=== PATIENT | male | born 2005 | race Caucasian/White ===

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

== ENCOUNTER 2025-03-07 13:09 | Outpatient (AMB) | payer OTHER, SELFPAY ==
--- NOTE | 2025-03-07 13:49 | AM.OFFWIN_ITS ---
Intake Vital Signs 3 03/07/25 13:50 Height 6 ft Weight 124 lb BMI 16.8 BP 104/62 Blood Pressure Location Lt brachial Position Sitting Pulse 71 Pulse Source Pulse Oximeter Pulse Oximetry (%) 98 Oxygen Delivery Method Room Air Intake Visit Reasons: EP Rash under LT armpit Intake Note: Patient here for rash under left armpit that he noticed 2 days ago. Patient Tobacco Use Status: Never used Tobacco Allergies No Known Allergies [No Known Allergies*] Allergy (Verified 03/07/25 13:51) Do you need a note to return to daycare/school/sports/work: No HPI HPI Comments 2 History of Present Illness0 Details 19 y/o Male patient who presents to the walk in clinic with 2-3 day h/o Itchy red rash under left Armpit. 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 [facility] Medical History (Updated 03/07/25 @ 14:27 by Dayanara Jonas NP) Rash and nonspecific skin eruption Autism Social History Patient Tobacco Use Status: Never used Tobacco Review of Systems Const All systems reviewed & are unremarkable except as noted in HPI and below Physical Exam Vital Signs: Last Vital Signs Pulse 71 03/07/25 13:50 BP 104/62 03/07/25 13:50 Pulse Ox 98 03/07/25 13:50 Oxygen Delivery Method Room Air 03/07/25 13:50 BMI result Body Mass Index 16.8 Const General: no acute distress Nutritional Appearance: underweight Orientation/consciousness: patient oriented x3 Limitations: behavioral limitations Chest Chest/axillae images: 2 1. bright red scaly rash Skin Rashes: rashes noted (Left Armpit bright red scaly rash) Neuro General: patient oriented x3, gait normal and moves all extremities Psych Speech and movement: Normal speech and movement present Assessment & Plan Assessment & Plan (1) Rash and nonspecific skin eruption: Code(s): R21 - Rash and other nonspecific skin eruption Plan: DDx's: Tinea vs Eczema vs Dermatitis. Ordered Clotrima/Betameth Cream. Advised Keep the skin clean and Dry. Advised to Bath immediately after each Game. Medications: New 2 clotrimazole-betamethasone 1-0.05 % 1 appl topical BID 45 grams 1RF 2 weeks R21 - Rash and other nonspecific skin eruption Coding Level of Care Code Est Pt Level 4 (88503) Diagnoses Rash and nonspecific skin eruption R21 Time Spent (min) 20
[2025-03-07 13:50] VITALS: BP 104/62; PULSE 71; O2SAT 98; BMI 16.8
== END 2025-03-07 14:32 | disposition home or self-care (01) ==
PROVIDERS: PCP Pediatrics; Visit Provider Nurse Practitioner Family
DX: R21 Rash and other nonspecific skin eruption (principal)

== ENCOUNTER → 2025-03-07 13:09 | Outpatient (BNVA) | payer OTHER, SELFPAY | PROVIDERS: PCP Pediatrics; Visit Provider Nurse Practitioner Family | DX: R21 Rash and other nonspecific skin eruption (principal) | CPT/HCPCS: 99212 ==

== ENCOUNTER 2025-06-03 18:48 | Emergency (ER) | payer OTHER, SELFPAY ==
[2025-06-03 18:53] VITALS: BP 128/71; PULSE 63; RESP 16; TEMP 36.5; O2SAT 99; BMI 17.4
--- NOTE | 2025-06-03 19:09 | ED.GENADULT ---
HPI - General Adult General Chief complaint: Ear Problems Stated complaint: right ear blockage Time Seen by Provider: 06/03/25 18:57 Source: patient and RN notes reviewed Mode of arrival: ambulatory Limitations: no limitations History of Present Illness ED Provider: Brandy HPI narrative: 19-year-old male presents for evaluation of right ear blockage. He reports over last few days he has been unable to hear from it well. He has no pain He tried to flush the ear himself with a syringe and was unsuccessful. No other complaints or concerns Related Data Previous Rx's ?Medication ?Instructions ?Recorded clotrimazole-betamethasone 1 1 appl topical BID 2 weeks #45 03/07/25 %-0.05 % topical cream grams Allergies Allergy/AdvReac Type Severity Reaction Status Date / Time No Known Allergies (No Known Allergy Verified 06/03/25 18:56 Allergies*) Review of Systems Constitutional: Constitutional: Denies body ache(s), Denies chills, Denies fever(s) and Denies headache(s) ENT: Reports otalgia and Denies headache(s) Cardiovascular: Cardiovascular: Denies chest pain and Denies dyspnea on exertion Respiratory: Respiratory: Denies cough and Denies dyspnea on exertion Gastrointestinal: Gastrointestinal: Denies abdominal pain Integumentary/Breasts: Skin/Breast: Denies rash Neurologic: Denies headache(s) PMFSH Past Medical History Medical History (Updated 06/03/25 @ 19:13 by Eber Nava) Rash and nonspecific skin eruption Autism Social History Social History Patient Tobacco Use Status: Never used Tobacco Do you have a plan to hurt others: No Plan Physical Exam ED Vital Signs: Vital Signs - 24 hr 06/03/25 18:53 Temperature 97.7 F Pulse Rate 63 Respiratory Rate 16 Blood Pressure 128/71 Pulse Oximetry 99 Oxygen Delivery Method Room Air BMI result Body Mass Index 17.4 Const General: healthy appearing, comfortable, no acute distress, alert and awake Nutritional Appearance: well nourished Orientation/consciousness: patient oriented x3 HENMT Head: Yes normocephalic and Yes atraumatic Ears: right TM abnormal (Initially not visualized on right due to cerumen impaction) and TM normal on the left Eyes Eyelids: Yes eyelids normal Conjunctivae: conjunctivae normal Sclerae: sclerae normal Corneas: corneas normal Pupils: Equal, round and reactive pupils present EOM: EOMs intact bilaterally Neck Neck: Yes full ROM Resp Effort & Inspection: normal respiratory effort, able to speak in complete sentences and not labored Skin General skin exam: elasticity normal Neuro General: patient oriented x3 Cranial nerves: Yes Equal, round and reactive pupils present and Yes Bilaterally intact EOM present Cognition (Neuro): normal cognition Extrem Other: Moving all extremities well without any obvious deformities Medical Decision Making Medical Decision Making MDM Narrative: 19-year-old male presents for evaluation of a blockage in the right ear. He had a cerumen impaction. I irrigated the ear with a solution of hydrogen peroxide and warm water. I flushed 150 cc of this solution and the patient's ER and was able to remove large amounts of cerumen. A curette was used to remove the remnants from the external ear canal. Postprocedure a TM was visualized intact, no erythema. Differential Diagnosis Differential Diagnoses: The differential diagnosis associated with the presentation includes Cerumen impaction Otitis media Otitis externa Mastoiditis less likely Discharge Plan Discharge Clinical Impression: Cerumen impaction Patient Disposition: Home, Self-Care Instructions: Carbamide Peroxide (Into the ear) Additional Instructions: You had a moderate amount of ear wax buildup in your right ear. This was drained. I recommend that you do not stick anything in your ear. There was no evidence of an ear infection. You may follow up with your primary doctor You may use [id number] Debrox drops in the future to break up ear wax Prescriptions: No Action clotrimazole-betamethasone 1-0.05 % cream 1 appl topical BID 14 Days Qty: 45 1RF Print Language: [place] Leonean
[2025-06-03 19:54] VITALS: BP 199/62; PULSE 67; RESP 17; TEMP 36.8; O2SAT 98
== END 2025-06-03 19:55 | disposition home or self-care (01) ==
PROVIDERS: Emergency Provider Internal Medicine
DX: H92.01 Otalgia, right ear (principal); H61.21 Impacted cerumen, right ear
CPT/HCPCS: 69209; 99283

== ENCOUNTER 2025-06-20 12:29 | Outpatient (AMB) | payer OTHER, SELFPAY ==
--- NOTE | 2025-06-20 12:34 | A.OFFPC_ITS ---
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: No Accompanied by: Mother Allergies No Known Allergies (No Known Allergies*) Allergy (Verified 06/20/25 12:48) Medication List - Last Reconciled 06/20/25 by Artie Guerrero FIRE PREVENTION FORESTER- clotrimazole-betamethasone 1-0.05 % 1 appl topical BID 2 weeks Tobacco use date assessed: 06/20/25 Dental Screening Dental Screen Date: 06/20/25 Did you have a dental visit in the last 12 months?: Yes Did you have a dental problem in the last 6 months where you did not have access to dental care?: No Was dental information given to patient?: Patient has dentist HPI 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 He has a history of Autism Spectrum Disorder and has previously been under the care of a book shelver. The patient enjoys playing video games and is currently attending a specialized school. He is considering obtaining his first job soon. He denies experiencing chest pain, dyspnea, hematochezia, constipation, or diarrhea. The patient is described as having a tall and slender build. During the examination, excessive cerumen was noted in the right ear canal, which was impacting the tympanic membrane. Plans were made to flush the cerumen today, and fasting labs were ordered. Health Maintenance Social History - Education: Attending a specialized [employer] - Employment: Considering obtaining firs t job soon - Recreational Activities: Enjoys playin g video games Review of Systems - Cardiovascular: Denies chest pain - Respiratory: Denies dyspnea - Gastrointestinal: Denies hematochezia, constipation, diarrhea -denies any si or hi -denies any fevers or chills Physical Exam General: Cooperative, healthy appearing, comfortable, no acute distress and well developed, skinny stature, tall Orientation: Patient oriented x3 Limitations: No limitations Head: Normal to inspection Ears: Excessive cerumen in the right ear canal, pushing on the TM, after ear lavage, cerumen still present Nose: Normal external nose present Face and sinus: Normal facial exam Eyes: Appearance normal, both eyes and all related structures Neck: Normal visual inspection and Yes full ROM Respiratory: Normal respiratory effort and able to speak in complete sentences. Clear to auscultation bilaterally Cardiovascular: Regular rate and rhythm. Normal S1 and S2 GI: Normal to inspection. Soft to palpation and nontender : Testicles without masses/lesions and no hernias appreciated Skin: No rashes or lesions noted Neuro: Patient oriented x3 Extremities: Normal to inspection Plan The plan includes flushing the excessive cerumen from the right ear canal to relieve the impact on the tympanic membrane. Additionally, fasting laboratory tests have been ordered to further assess the patient's health status. [facility] Medical History Rash and nonspecific skin eruption Autism Social History Housing: Apartment Patient Tobacco Use Status: Never used Tobacco e-Cigarette/Vaping Use: Never Used service: No Current occupational status: unemployed Current occupational exposures/hazards: No Cognitive needs: No Hearing needs: No Vision needs: No Questionnaire PHQ-9 Over the last 2 weeks, how often have you been bothered by any of the following problems? 1. Little interest or pleasure in doing things: several days 2. Feeling down, depressed, or hopeless: several days 3. Trouble falling or staying asleep, or sleeping too much: not at all 4. Feeling tired or having little energy: not at all 5. Poor appetite or overeating: not at all 6. Feeling bad about yourself - or that you are a failure or have let yourself o r your family down: several days 7. Trouble concentrating on things, such as reading the newspaper or watching television: several days 8. Moving or speaking so slowly that other people could have noticed. Or the opposite - being so fidgety or restless that you have been moving around a lot more than usual: several days 9. Thoughts that you would be better off or of hurting yourself in some way: not at all Total score: 5 Depression Screening Interpretation: Negative Depression Screening Done: Yes 75232 - PHQ-9 Billing: Yes Source: Developed by Drs. Librado Montelongo, Lisa B.Josr Jordan and colleagues, with an educational mark from [employer]. Thrive Questionnaire Date Thrive assessed: 09/05/21 I am a: Patient What is your living situation today?: I have a steady place to live Within the past 12 months, did the food you bought not last and you didn't have the money to get more?: I choose not to answer this question Within the past 12 months, did you worry whether your food would run out before you got money to buy more?: Never true Do you have trouble paying for medicines?: No Do you have trouble getting transportation to medical appointments?: No Do you have trouble paying your heating and electricity bill?: No Do you have trouble taking care of your child, family member or friend?: No Do you have trouble with day-to-day activities such as bathing, preparing meals, shopping, managing finances, etc.?: No Are you currently unemployed and looking for a job?: Yes Are you interested in more education?: Yes Please select the resources that you would like help with: None Currently or been in a relationship where the following occur: I choose not to answer THRIVE Score: 0 AUDIT C Alcohol Use Questionnaire (AUDIT-C) 1. How often do you have a drink containing alcohol?: Never Total Score: 0 NICOLASA-7 AMB Questionnaire NICOLASA-7 Date NICOLASA - 7 assessed: 06/20/25 Feeling nervous, anxious, or on edge: 1 = Several days Not being able to stop or control worryin = Several days Worrying too much about different things: 1 = Several days Trouble relaxin = Not at all Being so restless that it is hard to sit still: 1 = Several days Becoming easily annoyed or irritable: 0 = Not at all Feeling afraid as if something awful might happen: 1 = Several days Total NICOLASA-7 score (0-4 normal; 5-9 mild; 10-14 moderate; 15-21 severe): 5 Source: Developed by Drs. Librado Montelongo, Josr Estrada and colleagues, with an educational mark from [employer]. NICOLASA-7 Assessment Billing NICOLASA-7 Assessment Tool: NICOLASA-7 Assessment 29625 Physical exam (Primary Care) Vital Signs: Last Vital Signs Temp 98.3 F 06/20/25 12:37 Pulse 65 06/20/25 12:37 Resp 16 06/20/25 12:37 BP 120/82 06/20/25 12:37 Pulse Ox 99 06/20/25 12:37 Tobacco/Smoking Status: Tobacco use Status Tobacco use date assessed 06/20/25 06/20/25 12:42 Patient Tobacco Use Status Never used Tobacco 06/20/25 12:36 e-Cigarette/Vaping Use Never Used 06/20/25 12:42 PHQ-9: PHQ-9 Score PHQ-9: Total score 5 06/20/25 12:42 Depression Screening Interpretation: Negative Thrive Assessment: Date of Thrive Assessment Date Thrive assessed 09/05/21 06/20/25 12:36 Currently or been in a relationship where the following occur: I choose not to answer Office Procedures Cerumen Removal From which ear canal was the cerumen removed: right Removal: irrigation Notes: patient tolerated procedure well and no complications (cerumen remains to right ear canal, will have him use debrox) 58616-Vlf Irrigation/Lavage (encouraged to try debrox, using drops up to 3 days straight ) Coding Level of Care Code Est Pt Level 3 (09391) New Pt Prev Care 18-39yr(48145 Diagnoses Encounter for routine adult physical exam with abnormal findings Z00. Autism F84.0 Impacted cerumen of right ear H61.21 CPT Codes Office Procedure - CPT: 94561-Jfc Irrigation/Lavage ([id number]) Additional Codes NICOLASA-7 Assessment Billing - NICOLASA-7 Assessment Tool: NICOLASA-7 Assessment 75228 ([id number]) PHQ-9 - 45068 - PHQ-9 Billing: Yes ([id number]) Assessment & Plan Assessment & Plan (1) Encounter for routine adult physical exam with abnormal findings: Code(s): Z00.01 - Encounter for general adult medical examination with abnormal findings Category: Medical (2) Autism: Code(s): F84.0 - Autistic disorder Category: Medical (3) Impacted cerumen of right ear: Code(s): H61.21 - Impacted cerumen, right ear Category: Medical Plan . Orders: Orders Complete Blood Count Auto Diff Today Z00.00 - Encounter for general adult medical examination without abnormal findings Comprehensive [place]. Panel Fast Today Z00.00 - Encounter for general adult medical examination without abnormal findings TSH reflex Free T4 Today Z00.00 - Encounter for general adult medical examination without abnormal findings Lipid Panel Today Z00.00 - Encounter for general adult medical examination without abnormal findings UA CC w/rflx Micro + Cult Today Z00.00 - Encounter for general adult medical examination without abnormal findings
[2025-06-20 12:37] VITALS: BP 120/82; PULSE 65; RESP 16; TEMP 36.8; O2SAT 99
== END 2025-06-20 13:52 | disposition home or self-care (01) ==
LOC: HO.HMCC 12:30
PROVIDERS: PCP Nurse Practitioner Family; Visit Provider Nurse Practitioner Family
DX: Z00.01 Encounter for general adult medical examination with abnormal findings (principal); F84.0 Autistic disorder; H61.21 Impacted cerumen, right ear

== ENCOUNTER → 2025-06-20 12:29 | Outpatient (BNVA) | payer OTHER, SELFPAY | PROVIDERS: PCP Nurse Practitioner Family; Visit Provider Nurse Practitioner Family | DX: Z00.01 Encounter for general adult medical examination with abnormal findings (principal); F84.0 Autistic disorder; H61.21 Impacted cerumen, right ear | CPT/HCPCS: 69209; 96127; 99212; 99385 ==

== ENCOUNTER 2025-07-01 09:40 | Outpatient (REF) | payer OTHER, SELFPAY ==
[2025-07-01 10:04] LABS: MANUAL DIFF FLAG NO
[2025-07-01 10:24] LABS: Hematocrit 47.5 % (42.0-52.0); Hemoglobin 16.6 g/dl (14.0-18.0); Imm Gran Abs Auto 0.01 X10*3/uL (0.00-0.03); Imm Gran Pct Auto 0.2 % (0.0-0.4); Lymphocytes Absolute Auto 1.6 X10*3/uL (1.2-4.9); Mean Corpuscular HGB Conc 34.9 g/dl (31.0-36.0); Mean Corpuscular Hemoglobin 30.2 pg (27.0-33.0); Mean Corpuscular Volume 86.4 fL (80.0-98.0); NRBC Abs Auto 0.000 X10*3/uL (0.0-0.012); NRBC Pct Auto 0.0 /100WBC (0.0-0.2); Platelet Count 243 X10*3/uL (160-400); Red Blood Count 5.50 X10*6/uL (4.60-5.80); White Blood Count 5.1 X10*3/uL (4.8-10.8)
[2025-07-01 10:44] LABS: Appearance Urine Clear; Glucose Urine UA Negative (Negative); PH 5.5 (5.0-9.0); Specific Gravity - Urine >= 1.030 (1.005-1.025)
[2025-07-01 11:33] LABS: Alanine Aminotransferase 43 U/L (0-40); Albumin Level 4.8 g/dL (3.5-5.0); Alkaline Phosphatase 76 U/L (39-117); Anion Gap 12 (12-20); Aspartate Amino Transferase 36 U/L (5-37); Blood Urea Nitrogen 15 mg/dL (9-16); Calcium 9.6 mg/dL (8.4-10.2); Carbon Dioxide 27 mmol/L (22-29); Chloride 106 mmol/L (96-108); Cholesterol 199 mg/dL (<200); Estimated Glomerular Filt Rate > 60; HDL Cholesterol 46 mg/dL (>40); Potassium 4.1 mmol/L (3.3-5.1); Sodium 141 mmol/L (135-145); Total Protein 7.1 g/dL (6.5-8.0); Triglycerides 55 mg/dL (<150)
== END 2025-07-01 09:41 | disposition home or self-care (01) ==
LOC: HO.LAB 09:40
PROVIDERS: PCP Nurse Practitioner Family; Visit Provider Nurse Practitioner Family
DX: Z00.00 Encounter for general adult medical examination without abnormal findings (principal)
CPT/HCPCS: 36415; 80053; 80061; 81003; 84443; 85025